=== PATIENT | female | born 1990 | race Hispanic/Latino ===

== ENCOUNTER 2017-04-18 07:12 | Emergency (ER) | payer OTHER ==
[~2017-04-18] VITALS: Ht 160 cm; Wt 102.1 kg
[2017-04-18] MEDS ORDERED: ADVIL200 M1 PO (07:26)
[2017-04-18] MEDS ORDERED: NORCO 5-325 TA1 EACH PO (08:21)
== END 2017-04-18 08:00 | disposition home or self-care (01) ==
LOC: ED 07:12
DX: S92.414A Nondisplaced fracture of proximal phalanx of right great toe, initial encounter for closed fracture (principal); W20.8XXA Other cause of strike by thrown, projected or falling object, initial encounter
CPT/HCPCS: 73630; 99283